=== PATIENT | male | born 1960 | race Caucasian/White ===

== ENCOUNTER 2016-04-21 10:29 | Emergency (ER) | payer OTHER ==
[~2016-04-21] VITALS: Ht 188 cm; Wt 123.8 kg
[2016-04-22] MEDS ORDERED: NAPROSYN500 MG PO (11:15)
== END 2016-04-21 13:25 | disposition short-term general hospital (02) ==
LOC: ER 10:29
DX: R07.89 Other chest pain (principal); M54.9 Dorsalgia, unspecified; D72.829 Elevated white blood cell count, unspecified; M06.9 Rheumatoid arthritis, unspecified; E66.9 Obesity, unspecified; K21.9 Gastro-esophageal reflux disease without esophagitis; Z79.899 Other long term (current) drug therapy
CPT/HCPCS: J2270; Q9967

== ENCOUNTER 2016-04-22 08:40 | Emergency (ER) | payer OTHER ==
[2016-04-22] MEDS ORDERED: NAPROSYN500 MG PO (11:15)
== END 2016-04-22 11:05 | disposition short-term general hospital (02) ==
LOC: ER 08:40
DX: K29.70 Gastritis, unspecified, without bleeding (principal); M06.9 Rheumatoid arthritis, unspecified
CPT/HCPCS: A9270; J2270; J2930

== ENCOUNTER 2016-04-30 13:49 | Inpatient (IN) | payer OTHER ==
[~2016-04-30] VITALS: Ht 188 cm; Wt 123.8 kg
[~2016-04-30 13:49] MED LIST: NAPROSYN500 MG PO
[2016-04-30] MEDS ORDERED: PREDNISONE5 MG PO (17:46)
[2016-04-30] MEDS ORDERED: LIDOCAINE HCL V15 ML PO (17:58)
[2016-04-30] MEDS ORDERED: MAALOX MAXIMUM355 ML PO (17:59)
[2016-04-30] MEDS ORDERED: CARAFATE1 GM PO (18:01)
[2016-05-02] MEDS ORDERED: PRILOSEC40 MG PO (15:14)
[2016-05-02] MEDS ORDERED: MOBIC15 MG PO (15:15)
[2016-05-02] MEDS ORDERED: SULFAZINE500 MG PO (16:46)
[2016-05-02] MEDS ORDERED: TRAZODONE HCL50 MG PO (16:46)
[2016-05-02] MEDS ORDERED: CARAFATE1 GM PO (16:49)
[2016-05-02] MEDS ORDERED: PERCOCET 325-51 TAB PO (17:15)
[2016-05-02] MEDS ORDERED: MORPHINE SULFAT20 M1 PO (17:16)
== END 2016-05-02 17:32 | disposition short-term general hospital (02) | DRG 552 ==
LOC: ER 13:49 → IP 17:50 → ER 17:50 → IP 05-02 17:32
PROVIDERS: ADMIT Family Medicine
DX: M47.26 Other spondylosis with radiculopathy, lumbar region (principal); N39.0 Urinary tract infection, site not specified; M41.9 Scoliosis, unspecified; M51.16 Intervertebral disc disorders with radiculopathy, lumbar region; B95.8 Unspecified staphylococcus as the cause of diseases classified elsewhere; K21.9 Gastro-esophageal reflux disease without esophagitis; M06.9 Rheumatoid arthritis, unspecified
CPT/HCPCS: A9577; J1650; J1885; J2270; J2930